=== PATIENT | female | born 1965 | race Caucasian/White ===

== ENCOUNTER 2017-05-12 10:58 | Emergency (ER) | payer OTHER ==
[~2017-05-12] VITALS: Ht 160 cm; Wt 71.1 kg
[~2017-05-12 10:58] MED LIST: AMBIEN CR12.5 MG PO; ATORVASTATIN CA20 MG PO; CYMBALTA60 MG PO; FLOVENT DISKUS1 DIS2 IH; LAMICTAL25 MG PO; LORATADINE10 M2 PO; MEDROL DOSEPAK4 MG PO; MOVANTIK25 MG PO; OXYCODONE HCL10 MG PO; PERCOCET 5/31 TABLET PO; VALIUM5 MG PO; XANAX0.25 MG PO
[2017-05-12 11:34] LABS: HEMATOCRIT 37.7 % (36.0-46.0); MCH 29.9 PG (29.0-34.0); MCV 88.1 FL (83-99); MEAN PLAT.VOLUME 9.3 uM^3 (9.5-12.4); PLATELET COUNT 222 K/uL (156-360); RBC DIS.WIDTH-CV 12.3 % (11.8-14.6); RBC DIS.WIDTH-SD 39.8 % (39-53); RED BLOOD COUNT 4.28 M/uL (3.80-5.20); WHITE BLOOD COUNT 4.4 K/uL (4.1-10.2)
[2017-05-12 11:45] LABS: CHLORIDE 104 mEq/L (99-109); POTASSIUM 4.6 mEq/L (3.7-5.4); SODIUM 140 mEq/L (136-147)
[2017-05-12 11:50] LABS: TOTAL BILIRUBIN 0.5 mg/dL (0.0-1.0)
[2017-05-12 11:53] LABS: GLUCOSE 111 mg/dL (70-99)
[2017-05-12 11:54] LABS: ANION GAP 9 MEQ/L (2-14)
[2017-05-12 11:56] LABS: ALKALINE PHOSPHATASE 68 IU/L (3-129)
[2017-05-12 11:57] LABS: GFR ESTIMATE (CALCULATED) > 59 mL/min/
[2017-05-12 11:58] LABS: UREA NITROGEN (BUN) 11 mg/dL (9-23)
[2017-05-12 12:00] LABS: LIPASE 7 U/L (1.0-51.0)
[2017-05-12 12:01] LABS: QUANTITATIVE HCG 4.5 MIU/ML
[2017-05-12 12:50] LABS: ADD MIUA? NO; BILIRUBIN NEGATIVE; BLOOD NEGATIVE; COLOR STRAW ((YELLOW)); GLUCOSE (STRIP) NEGATIVE; KETONES NEGATIVE; LEUKOCYTES NEGATIVE; NITRITE NEGATIVE; PROTEIN (STRIP) NEGATIVE; SPECIFIC GRAVITY 1.005 (1.000-1.030); UROBILINOGEN 0.2 MG/DL (0.2-1.0)
[2017-05-12] MEDS ORDERED: ZOFRAN ODT4 MG PO (13:06)
[2017-05-12] MEDS ORDERED: BENTYL10 MG PO (13:06)
[2017-05-12 13:25] VITALS: BP 125/78
[2017-05-12] MEDS ORDERED: BUPROPION HCL100 M1 PO (13:34)
== END 2017-05-12 13:35 | disposition home or self-care (01) ==
LOC: EME 10:58
PROVIDERS: Nurse Practitioner Family
DX: R10.9 Unspecified abdominal pain (principal); R11.2 Nausea with vomiting, unspecified; R42 Dizziness and giddiness; R68.83 Chills (without fever); E78.5 Hyperlipidemia, unspecified; Z87.891 Personal history of nicotine dependence
CPT/HCPCS: 80053; 81003; 83690; 84702; 85027; 99281; 99284; J2405; J7030